=== PATIENT | male | born 1935 | race Caucasian/White ===

== ENCOUNTER → 2017-03-11 | Outpatient (CLI) | payer MEDICARE, OTHER ==
[~2017-03-11] MED LIST: AMIO200T42 PO; AMLO5TAB2 PO; APIX2.5T PO; ASCO10004 PO; CALC500T93 PO; CARV6.252 PO; CHOL2000 PO; FURO20TA3 PO; LINA5TAB PO; LOVA20TA2 PO; MAGN250T9 PO; NIAC750T PO; OMEG10007 PO; POTA20TA89 PO; REGADENOSON 0.4 MG/5 ML SYRINGE ONE; UBID200C7 PO; VITA10004 PO; VITA200C33 PO; [UNRECOGNIZED DRUG - CODE] PO; [UNRECOGNIZED DRUG - OTHER] PO
== END | disposition home or self-care (01) ==
LOC: CFH 12:37
PROVIDERS: ATTEND Internal Medicine Cardiovascular Disease
DX: I42.9 Cardiomyopathy, unspecified (principal)
CPT/HCPCS: 78452; 93017; A9502; J2785

== ENCOUNTER → 2017-06-30 | Outpatient (CLI) | payer MEDICARE, OTHER ==
[~2017-06-30] MED LIST changes: -REGADENOSON 0.4 MG/5 ML SYRINGE ONE
== END | disposition home or self-care (01) ==
LOC: CVU 09:57
PROVIDERS: ATTEND Internal Medicine Cardiovascular Disease
DX: I08.0 Rheumatic disorders of both mitral and aortic valves (principal); I10 Essential (primary) hypertension; E78.5 Hyperlipidemia, unspecified; E11.9 Type 2 diabetes mellitus without complications; I48.91 Unspecified atrial fibrillation; I42.9 Cardiomyopathy, unspecified
CPT/HCPCS: 93306

== ENCOUNTER → 2019-10-26 | Outpatient (CLI) | payer MEDICARE ==
[~2019-10-26] MED LIST changes: +AMLO-150 PO; -AMLO5TAB2 PO; +ASCO500T8 PO; +ATOR40TA78 PO; +CARV3.1212 PO; +CARV6.2512 PO; +GLYB5TAB3 PO; +LISI2.5T PO; +POTA10TA5 PO
== END | disposition home or self-care (01) ==
LOC: CVU 12:39
PROVIDERS: ATTEND Internal Medicine Cardiovascular Disease
DX: I05.8 Other rheumatic mitral valve diseases (principal)
CPT/HCPCS: 93306